=== PATIENT | male | born 1995 | race Two or more races ===

== ENCOUNTER → 2024-12-28 | Emergency (ER) | payer OTHER ==
[~2024-12-28] VITALS: Ht 190.5 cm; Wt 108.9 kg
[2024-12-28 01:40] VITALS: BP 128/80; TEMP 98.8; O2SAT 98
== END | disposition home or self-care (01) ==
LOC: ER 01:02
DX: Z02.89 Encounter for other administrative examinations (principal); Z65.3 Problems related to other legal circumstances